=== PATIENT | female | born 1940 | race Caucasian/White ===

== ENCOUNTER → 2018-09-21 | Outpatient (CLI) | payer MEDICARE, OTHER ==
[~2018-09-21] MED LIST: AMIO200T PO; AMOX-291 PO; CARV-39 PO; CHOL500015 PO; DIGO125T PO; FLUT1DIS3 INH; FURO-93 PO; HYDR-3237 PO; INSU100I29 SC; LEVA15HF4 INH; LEVO75TA5 PO; METF10002 PO; METF500T17 PO; METO2.5T PO; MILK150C2 PO; OMEP-110 PO; OMEP10CA4 PO; POTA20TA89 PO; PRAV40TA2 PO; PRED10TA PO; RIVA20TA PO; SPIR25TA PO; WARF10TA PO; WARF5TAB PO; WARF7.5T PO
== END | disposition home or self-care (01) ==
LOC: CFH 10:37
PROVIDERS: ATTEND Physician Assistant
DX: I08.1 Rheumatic disorders of both mitral and tricuspid valves (principal); I48.2 Chronic atrial fibrillation; I10 Essential (primary) hypertension; E11.9 Type 2 diabetes mellitus without complications; E78.5 Hyperlipidemia, unspecified
CPT/HCPCS: 93306

== ENCOUNTER → 2018-12-18 | Outpatient (CLI) | payer MEDICARE, OTHER ==
[~2018-12-18] MED LIST changes: +REGADENOSON 0.4 MG/5 ML SYRINGE ONE
== END | disposition home or self-care (01) ==
LOC: CFH 07:36
PROVIDERS: ATTEND Nurse Practitioner Family
DX: I44.7 Left bundle-branch block, unspecified (principal)
CPT/HCPCS: 78452; 93017; A9502; J2785

== ENCOUNTER 2019-06-07 14:33 | Inpatient (IN) | payer MEDICARE, OTHER ==
[~2019-06-07] VITALS: Ht 167.6 cm; Wt 104.4 kg
[~2019-06-07 14:33] MED LIST changes: -REGADENOSON 0.4 MG/5 ML SYRINGE ONE
[2019-06-07 15:22] LABS: BASOPHILS # (AUTO) 0.02 x10^3/uL (0-0.1); BASOPHILS % (AUTO) 0 % (0-1); EOSINOPHILS # (AUTO) 0.22 x10^3/uL (0-0.4); EOSINOPHILS % (AUTO) 3 % (1-7); LYMPHOCYTES # (AUTO) 1.38 x10^3/uL (1-3.4); LYMPHOCYTES % (AUTO) 18 % (22-44); MD NO; MEAN CORPUSCULAR HEMOGLOBIN 32.7 pg (27.0-34.8); MEAN CORPUSCULAR VOLUME 102.1 fL (80-100); MEAN PLATELET VOLUME 8.4 fL (7.4-10.4); MONOCYTES # (AUTO) 0.57 x10^3/uL (0.2-0.8); MONOCYTES % (AUTO) 8 % (2-9); NEUTROPHILS # (AUTO) 5.39 x10^3/uL (1.8-6.8); NEUTROPHILS % (AUTO) 71 % (42-75); PLATELET COUNT 174 x10^3/uL (130-400); RED BLOOD COUNT 3.03 x10^6/uL (3.82-5.3); RED CELL DISTRIBUTION WIDTH 18.5 % (9.6-15.2)
[2019-06-07 15:28] LABS: ALBUMIN 3.4 g/dL (3.4-5.0); ANION GAP 9 mmol/L (5-15); CALCIUM 9.7 mg/dL (8.5-10.1); CHLORIDE 109 mmol/L (98-107); CREATININE 1.69 mg/dL (0.55-1.02)
--- NOTE | 2019-06-07 15:30 | NUR ---
"MY LEGS ARE SWOLLEN. I DO HAVE CHF (PACEER, NOW UNRESPONSIVE TO LASIX, RECENTLY SWITCHED TO TORSEMIDE.) BUT FULL DIURESIS COMPLICATED PATIENT W/ KIDNEY DISEASE" BILATERAL +3 EDEMA. WET COUGH W/YELLOW SPUTUM VITALS STABLE ON ROOM AIR TO PLACE PIV UPDATED ON ESTIMATED POC
[2019-06-07 15:37] LABS: INTERNATIONAL NORMALIZED RATIO 1.77 (0.93-1.1); PROTHROMBIN TIME 18.2 Seconds (9.6-11.5)
[2019-06-07] MEDS ORDERED: ALLO100T30 PO (15:38)
[2019-06-07] MEDS ORDERED: ALBU0.63 NEB (15:38)
[2019-06-07] MEDS ORDERED: ALEN10TA6 PO (15:38)
[2019-06-07] MEDS ORDERED: TORS20TA PO (15:50)
--- NOTE | 2019-06-07 15:57 | NUR ---
MED RECC UPDATED
[2019-06-07] MEDS ORDERED: FUROSEMIDE 40 MG/4 ML IV ONE (16:00)
[2019-06-07] MEDS ORDERED: ISOS10TA2 PO (16:09)
[2019-06-07] MEDS ORDERED: HYDR-3341 PO (16:09)
[2019-06-07] MEDS ORDERED: LISI-170 PO (16:09)
[2019-06-07] MEDS ORDERED: METF850T10 PO (16:09)
[2019-06-07] MEDS ORDERED: MELO7.5T5 PO (16:09)
[2019-06-07 16:10] LABS: ALANINE AMINOTRANSFERASE 31 U/L (12-78); ALBUMIN 3.4 g/dL (3.4-5.0); BILIRUBIN, DIRECT 0.1 mg/dL (0.1-0.2)
[2019-06-07 16:13] LABS: ALKALINE PHOSPHATASE 74 U/L (45-117); BILIRUBIN,INDIRECT 0.3 mg/dL (0.0-2.0); BILIRUBIN,TOTAL 0.4 mg/dL (0.2-1.0); TOTAL PROTEIN 6.5 g/dL (6.4-8.2); TROPONIN I < 0.015 ng/mL (0.000-0.045)
[2019-06-07] MEDS ORDERED: PRAV80TA2 PO (16:13)
[2019-06-07] MEDS ORDERED: FUROSEMIDE 40 MG/4 ML ONE (16:31)
--- NOTE | 2019-06-07 16:40 | NUR ---
MEDICATED PER EMAR -LASIX AFTER POTASSIUM VERIFIED VITAL UPDATED-REMAIN UNCHANGED- 2L NC REMAINS IN PLACED FOR PATIENT CMFORT ESTIMATED ON ESTIMATED POC
--- NOTE | 2019-06-07 17:10 | NUR ---
Post lasix has voided 400ml Patient report's "I feel alot better. I don't know if its the fluid off, or the MD saying everything looks ok." vitals stable on monitoring coordinator
--- NOTE | 2019-06-07 17:40 | NUR ---
HOSPITALIST AT BEDSIDE
[2019-06-07] MEDS ORDERED: POLYETHYLENE GLYCOL 17 GM PACKET PO PRN (18:00)
[2019-06-07] MEDS ORDERED: LABETALOL 5MG/ML, 20ML IVPush PRN ×2 (18:00→18:30)
--- NOTE | 2019-06-07 18:01 | NUR ---
CARDIAC DIET ORDERED FOR PATIENT
[2019-06-07] MEDS ORDERED: ONDANSETRON ODT 4 MG PO PRN (18:30)
[2019-06-07] MEDS ORDERED: ONDANSETRON 2MG/ML, 2ML IVPush PRN (18:30)
[2019-06-07] MEDS: FUROSEMIDE 40 MG/4 ML IV SCH (18:30)
[2019-06-07 18:46] LABS: FREE T4 (FREE THYROXINE) 1.19 ng/dL (0.76-1.46)
--- NOTE | 2019-06-07 18:49 | NUR ---
ASSUMED CARE OF PATIENT. REPORT GIVEN FROM BENITA SPENCER
--- NOTE | 2019-06-07 18:55 | NUR ---
REPORT TO SRUTHI JOY
--- NOTE | 2019-06-07 19:05 | NUR ---
REPORT CALLED INTO [facility] [employer]
[2019-06-07 19:13] LABS: MICROSCOPIC AUTO
[2019-06-07 19:25] LABS: CULTURE INDICATED? YES
[2019-06-07 19:50] VITALS: BP 126/74
[2019-06-07 20:00] VITALS: BP 129/82
[2019-06-07] MEDS ORDERED: WARFARIN 3 MG TABLET PO-COUM ONE (20:30)
[2019-06-07] MEDS: HEPARIN 5,000 UNITS/ML, 1ML SQ SCH (20:38)
[2019-06-07] MEDS ORDERED: CARVEDILOL 6.25 MG TABLET PO SCH (21:00)
[2019-06-07] MEDS: ALBUTEROL SULFATE 2.5 MG/3 ML NPPB SCH (21:00)
[2019-06-07 21:19] LABS: CREATININE,URINE RANDOM 20.6 mg/dL
[2019-06-07] MEDS: ISOSORBIDE DINITRATE 10 MG TABLET PO SCH (21:38)
[2019-06-07] MEDS: PRAVASTATIN 40 MG TABLET PO SCH (21:38)
[2019-06-08] MEDS: ALBUTEROL SULFATE 2.5 MG/3 ML NPPB SCH ×4 (02:35→19:09)
[2019-06-08 02:48] VITALS: BP 123/73
[2019-06-08] MEDS: HEPARIN 5,000 UNITS/ML, 1ML SQ SCH (04:08)
[2019-06-08 04:36] LABS: BASOPHILS # (AUTO) 0.04 x10^3/uL (0-0.1); BASOPHILS % (AUTO) 1 % (0-1); EOSINOPHILS % (AUTO) 3 % (1-7); LYMPHOCYTES % (AUTO) 22 % (22-44); MD NO; MEAN CORPUSCULAR HEMOGLOBIN 32.3 pg (27.0-34.8); MEAN CORPUSCULAR HGB CONC 32.3 g/dL (32.4-35.8); MEAN CORPUSCULAR VOLUME 100.1 fL (80-100); MEAN PLATELET VOLUME 8.1 fL (7.4-10.4); MONOCYTES % (AUTO) 9 % (2-9); NEUTROPHILS # (AUTO) 4.46 x10^3/uL (1.8-6.8); NEUTROPHILS % (AUTO) 66 % (42-75); PLATELET COUNT 168 x10^3/uL (130-400); RED BLOOD COUNT 2.79 x10^6/uL (3.82-5.3); RED CELL DISTRIBUTION WIDTH 18.5 % (9.6-15.2)
[2019-06-08 04:43] LABS: INTERNATIONAL NORMALIZED RATIO 1.91 (0.93-1.1); PROTHROMBIN TIME 19.6 Seconds (9.6-11.5)
[2019-06-08 04:48] LABS: ALBUMIN 3.3 g/dL (3.4-5.0); ANION GAP 7 mmol/L (5-15); CALCIUM 9.4 mg/dL (8.5-10.1); CHLORIDE 109 mmol/L (98-107)
[2019-06-08 05:02] LABS: ALANINE AMINOTRANSFERASE 25 U/L (12-78); ALKALINE PHOSPHATASE 71 U/L (45-117); BILIRUBIN,TOTAL 0.4 mg/dL (0.2-1.0); CREATININE 1.51 mg/dL (0.55-1.02); TOTAL PROTEIN 5.9 g/dL (6.4-8.2)
[2019-06-08 06:25] VITALS: BP 144/80
[2019-06-08] MEDS: BUDESONIDE 0.5 MG/2 ML INHA INH SCH ×2 (07:15→19:09)
[2019-06-08] MEDS: SENNA/DOCUSATE TABLET PO SCH (08:04)
[2019-06-08] MEDS: CARVEDILOL 12.5 MG TABLET PO SCH ×2 (08:04→19:59)
[2019-06-08] MEDS: LISINOPRIL 5 MG TABLET PO SCH (08:04)
[2019-06-08] MEDS: SPIRONOLACTONE 25 MG TABLET PO SCH (08:04)
[2019-06-08] MEDS: LEVOTHYROXINE 75 MCG TABLET PO SCH (08:04)
[2019-06-08] MEDS: ISOSORBIDE DINITRATE 10 MG TABLET PO SCH ×3 (08:04→19:59)
[2019-06-08] MEDS: FUROSEMIDE 40 MG/4 ML IV SCH ×2 (08:05→17:33)
[2019-06-08 12:27] VITALS: BP 157/75
[2019-06-08] MEDS ORDERED: WARFARIN 3 MG TABLET PO-COUM ONE (18:00)
[2019-06-08 19:02] VITALS: BP 114/69
[2019-06-08 19:57] VITALS: BP 119/70
[2019-06-08] MEDS: PRAVASTATIN 40 MG TABLET PO SCH (20:01)
[2019-06-09] MEDS: ALBUTEROL SULFATE 2.5 MG/3 ML NPPB SCH ×2 (02:37→07:46)
[2019-06-09 03:23] VITALS: BP 147/89
[2019-06-09 05:31] LABS: BASOPHILS # (AUTO) 0.02 x10^3/uL (0-0.1); BASOPHILS % (AUTO) 0 % (0-1); EOSINOPHILS # (AUTO) 0.22 x10^3/uL (0-0.4); EOSINOPHILS % (AUTO) 4 % (1-7); LYMPHOCYTES # (AUTO) 1.47 x10^3/uL (1-3.4); LYMPHOCYTES % (AUTO) 24 % (22-44); MD NO; MEAN CORPUSCULAR HEMOGLOBIN 32.6 pg (27.0-34.8); MEAN CORPUSCULAR HGB CONC 32.2 g/dL (32.4-35.8); MEAN CORPUSCULAR VOLUME 101.4 fL (80-100); MEAN PLATELET VOLUME 8.6 fL (7.4-10.4); MONOCYTES # (AUTO) 0.57 x10^3/uL (0.2-0.8); MONOCYTES % (AUTO) 9 % (2-9); NEUTROPHILS # (AUTO) 3.85 x10^3/uL (1.8-6.8); NEUTROPHILS % (AUTO) 63 % (42-75); PLATELET COUNT 182 x10^3/uL (130-400); RED BLOOD COUNT 2.94 x10^6/uL (3.82-5.3); RED CELL DISTRIBUTION WIDTH 18.6 % (9.6-15.2)
[2019-06-09 05:40] LABS: INTERNATIONAL NORMALIZED RATIO 1.68 (0.93-1.1); PROTHROMBIN TIME 17.3 Seconds (9.6-11.5)
[2019-06-09 05:46] LABS: ALBUMIN 3.5 g/dL (3.4-5.0); ANION GAP 7 mmol/L (5-15); CHLORIDE 108 mmol/L (98-107)
[2019-06-09 05:49] LABS: ALANINE AMINOTRANSFERASE 26 U/L (12-78); ALKALINE PHOSPHATASE 76 U/L (45-117); BILIRUBIN,TOTAL 0.5 mg/dL (0.2-1.0); CREATININE 1.45 mg/dL (0.55-1.02); TOTAL PROTEIN 6.4 g/dL (6.4-8.2)
[2019-06-09 06:36] VITALS: BP 126/66
[2019-06-09] MEDS: BUDESONIDE 0.5 MG/2 ML INHA INH SCH (07:46)
[2019-06-09 09:36] VITALS: BP 118/65
[2019-06-09] MEDS: LISINOPRIL 5 MG TABLET PO SCH (09:40)
[2019-06-09] MEDS: FUROSEMIDE 40 MG/4 ML IV SCH (09:40)
[2019-06-09] MEDS: ISOSORBIDE DINITRATE 10 MG TABLET PO SCH (09:41)
[2019-06-09] MEDS: SENNA/DOCUSATE TABLET PO SCH (09:41)
[2019-06-09] MEDS: LEVOTHYROXINE 75 MCG TABLET PO SCH (09:42)
[2019-06-09] MEDS: CARVEDILOL 12.5 MG TABLET PO SCH (09:42)
[2019-06-09] MEDS: SPIRONOLACTONE 25 MG TABLET PO SCH (09:42)
[2019-06-09] MEDS ORDERED: POTASSIUM CHLORIDE 20 MEQ TAB.ER.PRT PO ONE (10:30)
[2019-06-09] MEDS ORDERED: CARV12.543 PO (11:44)
[2019-06-09] MEDS ORDERED: POTA20TA89 PO (11:44)
[2019-06-09] MEDS ORDERED: METO2.5T PO (11:44)
[2019-06-09 12:11] VITALS: BP 122/67
[2019-06-09] MEDS ORDERED: GLIP5TAB10 PO (13:20)
[2019-06-09] MEDS ORDERED: FURO20TA3 PO ×2 (13:21→15:19)
[2019-06-09] MEDS ORDERED: CEFD300C37 PO (15:14)
[2019-06-09] MEDS ORDERED: WARFARIN 7.5 MG TABLET PO-COUM ONE (18:00)
[2019-06-09] MEDS ORDERED: SPIRONOLACTONE 25 MG TABLET PO SCH (21:00)
[2019-06-10] MEDS ORDERED: SPIRONOLACTONE 25 MG TABLET PO SCH (09:00)
== END 2019-06-09 13:25 | disposition home or self-care (01) | DRG 291 ==
LOC: ED 17:34 → EDIP 17:44 → 5SO 19:32 → DCLOUNGE 06-09 13:03
PROVIDERS: ADMIT Internal Medicine; ATTEND Internal Medicine
PROC: 5A09357 Assistance with Respiratory Ventilation, Less than 24 Consecutive Hours, Continuous Positive Airway Pressure (ICD-10-PCS; principal; 2019-06-08)
PROC: 5A09357 Assistance with Respiratory Ventilation, Less than 24 Consecutive Hours, Continuous Positive Airway Pressure (ICD-10-PCS; 2019-06-09)
DX: I13.2 Hypertensive heart and chronic kidney disease with heart failure and with stage 5 chronic kidney disease, or end stage renal disease (principal); J96.01 Acute respiratory failure with hypoxia; N18.6 End stage renal disease; I50.33 Acute on chronic diastolic (congestive) heart failure; D68.69 Other thrombophilia; N39.0 Urinary tract infection, site not specified; I48.2 Chronic atrial fibrillation; Z95.3 Presence of xenogenic heart valve; E11.22 Type 2 diabetes mellitus with diabetic chronic kidney disease; D53.9 Nutritional anemia, unspecified; E03.9 Hypothyroidism, unspecified; E66.9 Obesity, unspecified; E78.5 Hyperlipidemia, unspecified; G47.33 Obstructive sleep apnea (adult) (pediatric); I49.5 Sick sinus syndrome; K21.9 Gastro-esophageal reflux disease without esophagitis; M81.0 Age-related osteoporosis without current pathological fracture; M10.9 Gout, unspecified; Z66 Do not resuscitate; Z79.01 Long term (current) use of anticoagulants; Z79.84 Long term (current) use of oral hypoglycemic drugs; Z79.899 Other long term (current) drug therapy; Z80.0 Family history of malignant neoplasm of digestive organs; Z82.3 Family history of stroke; Z86.718 Personal history of other venous thrombosis and embolism; Z87.891 Personal history of nicotine dependence; Z90.710 Acquired absence of both cervix and uterus; Z95.0 Presence of cardiac pacemaker; Z68.37 Body mass index [BMI] 37.0-37.9, adult
CPT/HCPCS: 36415; 71045; 80048; 80053; 80076; 81001; 82040; 82436; 82570; 82962; 83735; 83880; 84100; 84133; 84300; 84439; 84443; 84484; 85025; 85610; 85730; 87077; 87086; 87186; 93005; 94640; G0378; J1644; J1940; J7613; J7626